=== PATIENT | male | born 1995 | race Caucasian/White ===

== ENCOUNTER 2016-11-17 16:27 | Emergency (ER) | payer OTHER ==
[~2016-11-17] VITALS: Ht 190.5 cm; Wt 83.9 kg
--- NOTE | 2016-11-17 17:31 | ED HAND/WRIST INJURY COMPLAINT ---
History of Present Illness General Chief Complaint: Laceration Procedure Stated Complaint: LACERATION R INDEX FINGER Source: patient Exam Limitations: no limitations Vital Signs & Intake/Output Vital Signs & Intake/Output Vital Signs Date Time Temp Pulse Resp B/P B/P Pulse O2 O2 Flow FiO2 Mean Ox Delivery Rate 11/17 1713 Room Air Room Air 11/17 1641 96.7 76 18 121/60 100 Room Air Allergies Coded Allergies: NO KNOWN ALLERGIES (12/08/12) Reconcile Medications No Known Home Medications Triage Note: TRIAGE: R INDEX FINGER LAC ON GIORGIO KNIFE, UNSURE OF LAST TETANUS. LAC IS APPROX 2CM AND WELL APPROXIMATED. HANDS WASHED IN TRIAGE. DRESSED WITH PRESSURE DRESSING. SLIGHTLY BLEEDING THROUGH. PT ACTING A LITTLE DISCONNECTED IN TRIAGE, WASHING HANDS LAYING OVER THE SINK. STOOD UP AND STRUGGLES TO FOLLOW DIRECTIONS TO OR SIT DURING WRAPPING. PT STATES HE ALSO GAVE BLOOD TODAY. PT THEN REQUESTED WATER, AND BODY WENT LIMP. HE STARTED FALLING BACKWARDS. CAUGHT BY THIS RN AND ASSISTED TO THE GROUND. NO HEADSTRIKE. PT AAOX3 AFTER APPROX 20 SECONDS. DENIES CP/SOB. DENIES ETOH/DRUGS Triage Nurses Notes Reviewed? yes Occurred: just prior to arrival Duration: hour(s):, constant, continues in ED Timing: recent history Injury Environment: home Severity: moderate, severe Pain/Injury Location: Right: 2nd finger. Method of Injury: laceration No Modifying Factors: none HPI: 21-year-old male comes into emergency room for further evaluation of laceration to right index finger. Patient cut his finger on a knife at home by accident. Last shot unknown. Throbbing pain. Continuous. Nonradiating. Denies any other associated symptoms. Associated bleeding. When the patient was in the waiting room he was washing his hand in the sink with the nurse and she was wrapping it and he had a syncopal episode. Symptoms have since resolved. Denies any prior history of this. Past History Travel History Traveled to [place] past 21 day No Medical History Any Pertinent Medical History? see below for history Neurological: NONE EENT: NONE Cardiovascular: NONE Respiratory: asthma Gastrointestinal: NONE Hepatic: NONE Renal: NONE Musculoskeletal: NONE Psychiatric: NONE Endocrine: NONE Blood Disorders: NONE Cancer(s): NONE PHYSICS TUTOR/Reproductive: NONE Surgical History Surgical History: non-contributory Psychosocial History What is your primary language [place] Tobacco Use: Never used ETOH Use: denies use Illicit Drug Use: denies illicit drug use Family History Hx Contributory? No Review of Systems Review of Systems Constitutional: Reports: no symptoms. EENTM: Reports: no symptoms. Respiratory: Reports: no symptoms. Cardiovascular: Reports: no symptoms. GI: Reports: no symptoms. Genitourinary: Reports: no symptoms. Musculoskeletal: Reports: no symptoms. Skin: Reports: see HPI. Neurological/Psychological: Reports: no symptoms. Hematologic/Endocrine: Reports: see HPI. Immunologic/Allergic: Reports: no symptoms. All Other Systems: Reviewed and Negative Physical Exam Physical Exam General Appearance: well developed/nourished, mild distress Head: atraumatic Eyes: Bilateral: normal appearance, EOMI. Ears, Nose, Throat: normal ENT inspection, hearing grossly normal Neck: normal inspection Cardiovascular/Respiratory: no respiratory distress Back: normal inspection Hand Left: normal inspection, normal range of motion Hand Right: lacerations, 2nd finger Neurologic/Tendon: normal sensation, normal motor functions, normal tendon functions, responds to pain, no evidence tendon injury, no pulse deficit Skin: intact, normal color, warm/dry Lymphatic: no anterior cervical coby Progress Differential Diagnosis: contusion, dislocation, felon, fracture, gout, paronychia, septic arthritis, sprain, tenosynovitis Plan of Care: Orders Procedure Date/time Status EKG 11/17 1650 Active Current Medications Sig/Abrahan Start time Last Medication Dose Stop Time Status Admin Tetanus/Diphtheria 0.5 ML ONCE ONE 11/17 1744 UNVr Toxoids Adsorbed 11/17 1746 (Decavac) Initial ED EKG: normal intervals, normal p-waves, normal QRS complex, normal sinus rhythm, rate (69) Comments: 11/17/2016 5:40:54 P Patient had a vasovagal episode after seeing his blood when washing his hands. His symptoms have resolved. His EKG is normal. Patient will be discharged. He 'll past medical history. Clinically looks well. Asymptomatic at the moment. Departure Departure Disposition: HOME OR SELF CARE Condition: Stable Clinical Impression Primary Impression: Finger laceration Secondary Impressions: Vasovagal syncope Referrals: JENNIE RAHMAN,JENIFFER Griffin (PCP/Family) Additional Instructions: Return in 7-10 days for suture removal. Keep covered with bacitracin and dry dressing. Return if any other concerns worsening symptoms. Please go over all results of today's visit with your primary care doctor. Contact your primary care doctor to let them know you were here in the emergency room. There may be nonspecific findings which may not be related to your visit today here in the emergency room but may require further evaluation and chronic monitoring by your primary care doctor. If you had a laceration today the chance of foreign body always remains. You should follow-up with your primary care doctor for recheck in 3-5 days for a wound check. If you had an x-ray done there is a chance that a fracture could have been missed on initial read and you should follow-up with your primary care doctor for repeat x-rays if symptoms persist. If your blood pressure was elevated here in the emergency room please have rechecked by her primary care doctor within the next 48 hours by your primary care doctor. If you were prescribed a narcotic here in the emergency room or any type of controlled substances you're not allowed to drive while taking this medication or operate any type of heavy machinery. Narcotics can make you feel lightheaded dizziness nausea and can cause constipation. You may need to supervisor opening and picking a stool softener. Thank you for choosing [facility] emergency room. Please return to the emergency room immediately if you have any other concerns worsening of symptoms. Departure Forms: Customer Survey General Discharge Information Prescriptions: Current Visit Scripts No Known Home Medications Procedures Laceration/Wound Repair Progress: 1 cm laceration right index finger, Betadine prep, 1% lidocaine, 2 mL injected, 5. 0 nylon, 3 sutures placed, sterile technique, patient tolerated procedure well,
[2016-11-17 18:13] VITALS: BP 128/58
== END 2016-11-17 18:14 ==
LOC: ERH 16:27
DX: S61.210A Laceration without foreign body of right index finger without damage to nail, initial encounter (principal); R55 Syncope and collapse; W26.0XXA Contact with knife, initial encounter
CPT/HCPCS: 90471; 90714; 93005; 93010